=== PATIENT | female | born 1960 | race Caucasian/White ===

== ENCOUNTER 2023-09-19 08:08 | Day surgery (SDC) | payer BC, SELFPAY ==
[2023-09-17 14:33] VITALS: BMI 22.1
--- NOTE | 2023-09-18 09:10 | HO.ANESPROP2 ---
Documented by User: Renay Swanson NP 09/18/23 09:10 HPI - Anesthesia Eval Consult details Narrative: 63yo F for Upper Endoscopy PMFSH Past Medical History Medical History GERD (gastroesophageal reflux disease) Hypothyroid Migraine Surgical History Surgical History Hx of cholecystectomy Hx of tonsillectomy Hx of appendectomy H/O colonoscopy Social History Social History Patient Tobacco Use Status: Never used Tobacco Are you DNR?: No Advance Directives: No Advance Directives Information Provided: Yes Nutrition Risks: No Nutritional Risk Meds Allergies Allergy/AdvReac Type Severity Reaction Status Date / Time Penicillins [PENICILLINS] Allergy Intermediate HIVES Verified 09/19/23 08:30 Home Medications Medication Instructions Recorded Confirmed Last Taken Type aspirin 81 mg tablet,delayed 81 mg PO DAILY 09/17/23 09/17/23 09/12/23 History release atorvastatin 40 mg tablet 40 mg PO DAILY 09/17/23 09/17/23 Unknown History calcium carbonate 600 mg calcium 600 mg PO DAILY 09/17/23 09/17/23 Unknown History (1,500 mg) tablet (Calcium) duloxetine 30 mg capsule,delayed 30 mg PO DAILY 09/17/23 09/17/23 Unknown History release hydrocodone 5 mg-acetaminophen 325 1 tab PO Q6H PRN Migraine Headache 09/17/23 09/17/23 Unknown History mg tablet levothyroxine 75 mcg tablet 75 mcg PO DAILY 09/17/23 09/17/23 Unknown History (Synthroid) multivitamin with minerals-folic 1 tab PO DAILY 09/17/23 09/17/23 Unknown History acid 200 mcg chewable tablet (Multivitamin Gummies) omeprazole 20 mg capsule,delayed 20 mg PO DAILY 09/17/23 09/17/23 Unknown History release rimegepant 75 mg disintegrating 75 mg PO Q OTHER DAY 09/17/23 09/17/23 Unknown History tablet (Nurtec ODT) rizatriptan 10 mg disintegrating 10 mg PO DAILY 09/17/23 09/17/23 Unknown History tablet Exam Height,Weight and Vital Signs: Height 5 ft 5.5 in Weight 61.235 kg Assessment and Plan Assessment Anesthesia Assessment: Chart Reviewed Documented by User: Doris Han MD 09/19/23 09:07 [facility] Past Medical History Medical History GERD (gastroesophageal reflux disease) Hypothyroid Migraine Family History Family history of problems with anesthesia: No Surgical History Surgical History Hx of cholecystectomy Hx of tonsillectomy Hx of appendectomy H/O colonoscopy History of Problems with Anesthesia: No Social History Social History Patient Tobacco Use Status: Never used Tobacco Are you DNR?: No Advance Directives: No Advance Directives Information Provided: Yes Nutrition Risks: No Nutritional Risk Meds Allergies Allergy/AdvReac Type Severity Reaction Status Date / Time Penicillins [PENICILLINS] Allergy Intermediate HIVES Verified 09/19/23 08:30 Home Medications Medication Instructions Recorded Confirmed Last Taken Type aspirin 81 mg tablet,delayed 81 mg PO DAILY 09/17/23 09/17/23 09/12/23 History release atorvastatin 40 mg tablet 40 mg PO DAILY 09/17/23 09/17/23 Unknown History calcium carbonate 600 mg calcium 600 mg PO DAILY 09/17/23 09/17/23 Unknown History (1,500 mg) tablet (Calcium) duloxetine 30 mg capsule,delayed 30 mg PO DAILY 09/17/23 09/17/23 Unknown History release hydrocodone 5 mg-acetaminophen 325 1 tab PO Q6H PRN Migraine Headache 09/17/23 09/17/23 Unknown History mg tablet levothyroxine 75 mcg tablet 75 mcg PO DAILY 09/17/23 09/17/23 Unknown History (Synthroid) multivitamin with minerals-folic 1 tab PO DAILY 09/17/23 09/17/23 Unknown History acid 200 mcg chewable tablet (Multivitamin Gummies) omeprazole 20 mg capsule,delayed 20 mg PO DAILY 09/17/23 09/17/23 Unknown History release rimegepant 75 mg disintegrating 75 mg PO Q OTHER DAY 09/17/23 09/17/23 Unknown History tablet (Nurtec ODT) rizatriptan 10 mg disintegrating 10 mg PO DAILY 09/17/23 09/17/23 Unknown History tablet Exam Height,Weight and Vital Signs: Height 5 ft 5.5 in Weight 61.235 kg Vital Signs Temp Pulse Resp BP Pulse Ox O2 Del Method 09/19/23 08:29 97.9 F 74 18 147/87 H 100 Room Air Airway Mallampati Class: II TM Dist: >3cm Neck ROM: Full Loose/Missing/Broken Teeth: No (Several caps intact. Denies broken, loose, missing teeth) Heart: RRR Lungs: CTAB Assessment and Plan Assessment Anesthesia Assessment: Anesthesia Plan Discussed and Chart Reviewed Final Anesthetic Review Family History of Problems with Anesthesia: No History of Problems with Anesthesia: No NPO: Yes ASA Class: II Final Preanesthetic Review: No Changes in Pt Med Stat, Meds/Allgs Chart Reviewed, Consent Obtained/Reviewed and Anes Risks/Benef Reviewed Patient Risk: Low Procedure Risk: Low Assessment/Block/Sedation in SS: Assess/Block/Sedation-SS Anesthetic Plan Anesthetic Plan: MAC: and TIVA Disposition: Standard PACU
[2023-09-19 08:16] VITALS: BMI 22.9
[2023-09-19] MEDS: Lactated Ringers 1,000 ML 100 ML IVCONT (08:22)
[2023-09-19 08:29] VITALS: BP 147/87; PULSE 74; RESP 18; TEMP 36.6; O2SAT 100
[2023-09-19 09:14] VITALS: BP 97/57; PULSE 73; RESP 16; TEMP 36.6; O2SAT 97
--- NOTE | 2023-09-19 09:19 | P.BOP_ITS ---
Brief Operative Note Date of Service: 09/19/23 Pre-op diagnosis: GERD Post-op diagnosis: other (Same, minimal hiatal hernia) Procedure: EGD with biopsies Surgeon: Claus Butler MD Anesthesia: MAC Was an Peanut Sorter used for this Procedure?: No Estimated blood loss (mL): 2.0 Pathology: other (A. EG Junction at 39c) Condition: stable Disposition: PACU
[2023-09-19 09:29] VITALS: BP 133/76; PULSE 76; RESP 18; TEMP 36.6; O2SAT 98
--- NOTE | 2023-09-19 10:16 | OP_ITS ---
DATE OF SERVICE: 09/19/2023 SURGEON: Claus Butler MD INDICATIONS: The patient presents for evaluation of gastroesophageal reflux. Full consent has been obtained from her for this, including risks of bleeding and perforation. PREOPERATIVE DIAGNOSIS: Gastroesophageal reflux. POSTOPERATIVE DIAGNOSIS: PROCEDURE PERFORMED: Esophagogastroduodenoscopy with biopsies. ESTIMATED BLOOD LOSS: COMPLICATIONS: ANESTHESIA: Monitored anesthesia care. ASSISTANTS: SPECIMENS: POSTOPERATIVE DIAGNOSES: Gastroesophageal reflux, minimal hiatal hernia. DESCRIPTION OF PROCEDURE: The patient was placed in the left lateral decubitus position. The Olympus video gastroscope was passed in the posterior oropharynx and upper esophagus under direct vision. The scope was passed slowly into the distal esophagus. The gastroesophageal junction appeared at 39 cm. There was a very minimal irregularity but no evidence of esophagitis nor any definitive evidence of Voss mucosa. There was a minimal hiatal hernia. The scope was advanced to the pylorus and the duodenum was cannulated to the descending portion. The duodenum including the bulb appeared normal without mass or ulceration. The scope was withdrawn back in the stomach. The gastric antrum and body appeared normal with good peristalsis. The scope was retroflexed visualizing the proximal stomach carefully, which appeared normal, without any sign of mass or ulceration. The scope was straightened and withdrawn back to the esophagus. Biopsies were obtained at the EG junction at 39 cm. Proximal to that, the esophageal mucosa appeared normal. The scope was withdrawn from the patient. She tolerated the procedure well and was returned to the recovery area in stable condition. IMPRESSION: Minimal changes of gastroesophageal reflux and hiatal hernia. PLAN: The results of the biopsies will be checked. She is doing well on her current regimen of every other day omeprazole and she will continue that for symptomatic relief of reflux. If she is otherwise well, she will see me on a p.r.n. basis. MD CHARLIE Salinas/GUTIERREZ / [id number]
== END 2023-09-19 09:57 | disposition home or self-care (01) ==
PROVIDERS: PCP Internal Medicine; Visit Provider Internal Medicine
PROC: 0DJ08ZZ Inspection of Upper Intestinal Tract, Via Natural or Artificial Opening Endoscopic (ICD-10-PCS; CPT 43235; principal; 2023-09-19 09:20)
DX: K21.9 Gastro-esophageal reflux disease without esophagitis (principal); K44.9 Diaphragmatic hernia without obstruction or gangrene; E03.9 Hypothyroidism, unspecified; G43.909 Migraine, unspecified, not intractable, without status migrainosus; Z79.899 Other long term (current) drug therapy; Z90.49 Acquired absence of other specified parts of digestive tract; Z88.0 Allergy status to penicillin
CPT/HCPCS: 43239; 88305; J2704